=== PATIENT | female | born 1945 ===

== ENCOUNTER → 2017-08-28 | Emergency (ER) | payer OTHER ==
[~2017-08-28] VITALS: Ht 167.6 cm; Wt 77.1 kg
[~2017-08-28] MED LIST: FEXOFENADINE HC60 MG; HYDROCHLOROTH12.5 M1; METOPROLOL SUCC50 MG; VYTORIN 10-40 M1 TAB
== END | disposition home or self-care (01) ==
LOC: ER 17:07
DX: R42 Dizziness and giddiness (principal); R10.13 Epigastric pain